=== PATIENT | female | born 1955 | race American Indian/Alaskan Native ===

== ENCOUNTER 2017-12-22 17:47 | Emergency (ER) | payer OTHER ==
[2017-12-22] MEDS ORDERED: ASPIRIN PO ONE (18:48)
[2017-12-22 19:10] LABS: Basophils # (Auto) 0.2 K/mm3 (0.0-0.1); Basophils % (Auto) 0.9 % (0.0-1.8); Eosinophils # (Auto) 0.1 K/mm3 (0.0-0.4); Eosinophils % (Auto) 0.5 % (0.0-4.3); Hematocrit 42.1 % (30.3-42.9); Hemoglobin 13.8 gm/dl (10.1-14.3); Lymphocytes % (Auto) 11.2 % (13.4-35.0); Mean Corpuscular HGB Conc 33 % (30-34); Mean Corpuscular Hemoglobin 32 pg (28-32); Mean Corpuscular Volume 98 fl (79-97); Monocytes # (Auto) 0.8 K/mm3 (0.0-0.8); Monocytes % (Auto) 4.5 % (0.0-7.3); Platelet Count 301 K/mm3 (140-440); Red Blood Count 4.28 M/mm3 (3.65-5.03); Red Cell Distribution Width 14.8 % (13.2-15.2)
[2017-12-22 19:26] LABS: Alanine Aminotransferase 18 units/L (7-56); Albumin 4.2 g/dL (3.9-5); BUN/Creatinine Ratio 16; Blood Urea Nitrogen 11 mg/dL (7-17); Calcium 9.4 mg/dL (8.4-10.2); Hemolysis Index 3
--- NOTE | 2017-12-22 23:09 | XRay Report ---
FINAL REPORT PROCEDURE: XR CHEST ROUTINE 2V TECHNIQUE: PA and lateral chest radiographs were obtained. CPT 32525 HISTORY: abdominal and cp COMPARISON: No prior studies are available for comparison. FINDINGS: Heart: Normal. Mediastinum/Vessels: Normal. Lungs/Pleural space: Normal. Bony thorax: No acute osseous abnormality. Other: IMPRESSION: Normal examination.
--- NOTE | 2017-12-23 10:02 | Emergency Department Report ---
HPI - General Chief Complaint: Abdominal Pain Time Seen by Provider: 12/23/17 09:45 - HPI HPI: Room 6 The patient is a 62-year-old female presenting with a chief complaint back pain and abdominal pain. The patient states 2 days ago she will gas pain in her upper back which then moved down to her lower back began to radiate around to her abdomen. Patient states the pain lasts approximately 12 hours and then resolved. The patient states yesterday when she waking the pain returned and lasted pretty much all day until today. The patient does admit to nausea and vomiting but denies diarrhea. Patient denies chest pain or shortness of breath. Patient currently denies pain Location: Low back, abdomen Duration: [See above] Quality: "Pain" Severity: Currently 0/10 Modifying factors: [see above] Context: [see above] Mode of transportation: [not driving] ED Past Medical Hx - Past Medical History Hx Hypertension: Yes Hx Heart Attack/AMI: Yes (2001) - Surgical History Past Surgical History?: No Additional Surgical History: cardia stents - Family History Family history: no significant - Social History Smoking Status: Never Smoker Substance Use Type: None (denies illicit drug use) - Medications Home Medications: Home Medications Medication Instructions Recorded Confirmed Last Taken Type Acetaminophen/Codeine 1 tab PO Q6H PRN #10 tab 09/28/14 Unknown Rx [Acetaminophen-Codeine #3 TAB] Atorvastatin [Lipitor] 80 mg PO QHS 09/28/14 09/28/14 Unknown History Azithromycin [Zithromax Z-KEVON] 250 mg PO DAILY #6 tablet 09/28/14 Unknown Rx Metoprolol [Lopressor TAB] 100 mg PO DAILY 09/28/14 09/28/14 Unknown History Ramipril 10 mg PO QDAY 09/28/14 09/28/14 Unknown History Telmisartan/Hydrochlorothiazid 1 each PO QDAY 09/28/14 09/28/14 Unknown History [Micardis Hct 80-12.5 mg] amLODIPine [Norvasc] 10 mg PO DAILY 09/28/14 09/28/14 Unknown History guaiFENesin/DEXTROMETHORPHAN 1 each PO BID #20 tbmp.12hr 09/28/14 Unknown Rx [Mucinex Dm ER 1,200-60 mg Tab] Ciprofloxacin HCl [Ciprofloxacin 500 mg PO BID #14 tablet 12/23/17 Unknown Rx TAB] HYDROcodone/APAP 5-325 [[place] 1 - 2 each PO Q6HR PRN #10 tablet 12/23/17 Unknown Rx 5/325] ED Review of Systems ROS: Stated complaint: GAS PAIN/BACK PAIN Other details as noted in HPI Constitutional: denies: fever Respiratory: denies: shortness of breath Cardiovascular: denies: chest pain Gastrointestinal: abdominal pain, nausea, vomiting. denies: diarrhea Musculoskeletal: back pain Physical Exam - Physical Exam Vital Signs: Vital Signs 12/22/17 18:43 Temperature 97.6 F Pulse Rate 55 L Respiratory 16 Rate Blood Pressure 173/60 O2 Sat by Pulse 99 Oximetry Physical Exam: GENERAL: The patient is well-developed well-nourished female lying on stretcher not appearing to be in acute distress. [] HEENT: Normocephalic. Atraumatic. Extraocular motions are intact. Patient has moist mucous membranes. NECK: Supple. Trachea midline CHEST/LUNGS: Clear to auscultation. There is no respiratory distress noted. HEART/CARDIOVASCULAR: Regular. There is no tachycardia. There is no gallop rub or murmur. ABDOMEN: Abdomen is soft, nontender. Patient has normal bowel sounds. There is no abdominal distention. SKIN: There is no rash. There is no edema. There is no diaphoresis. NEURO: The patient is awake, alert, and oriented. The patient is cooperative. The patient has normal speech MUSCULOSKELETAL: There is no CVA tenderness. There is no evidence of acute injury. ED Course Vital Signs 12/22/17 18:43 Temperature 97.6 F Pulse Rate 55 L Respiratory 16 Rate Blood Pressure 173/60 O2 Sat by Pulse 99 Oximetry ED Medical Decision Making - Lab Data Result diagrams: 12/22/17 18:51 12/22/17 18:51 Laboratory Tests 12/22/17 12/22/17 12/22/17 11:07 18:51 18:51 WBC 17.7 H RBC 4.28 Hgb 13.8 Hct 42.1 MCV 98 H MCH 32 MCHC 33 RDW 14.8 Plt Count 301 Lymph % (Auto) 11.2 L [place] % (Auto) 4.5 Eos % (Auto) 0.5 Baso % (Auto) 0.9 Lymph # 2.0 [place] # 0.8 Eos # 0.1 Baso # 0.2 H Seg Neutrophils % 82.9 H Seg Neutrophils # 14.7 H Sodium 142 Potassium 3.9 Chloride 99.8 Carbon Dioxide 31 H Anion Gap 15 BUN 11 Creatinine 0.7 Estimated GFR > 60 BUN/Creatinine Ratio 16 Glucose 112 H Calcium 9.4 Total Bilirubin 0.20 AST 19 ALT 18 Alkaline Phosphatase 63 Troponin T < 0.010 Total Protein 7.3 Albumin 4.2 Albumin/Globulin Ratio 1.4 Lipase Urine Color Straw Urine Turbidity Clear Urine pH 7.0 Ur Specific [place] 1.004 Urine Protein <15 mg/dl Urine Glucose (UA) Neg Urine Ketones Neg Urine Blood Neg Urine Nitrite Neg Ur Reducing Substances Not Reportable Urine Bilirubin Neg Urine Ictotest Not Reportable Urine Urobilinogen < 2.0 Ur Leukocyte Esterase Neg Urine WBC (Auto) 2.0 Urine RBC (Auto) 1.0 U Epithel Cells (Auto) 2.0 Urine Bacteria (Auto) 3+ Urine Mucus Few 12/22/17 12/22/17 12/23/17 22:42 22:42 01:53 WBC RBC Hgb Hct MCV MCH MCHC RDW Plt Count Lymph % (Auto) [place] % (Auto) Eos % (Auto) Baso % (Auto) Lymph # [place] # Eos # Baso # Seg Neutrophils % Seg Neutrophils # Sodium Potassium Chloride Carbon Dioxide Anion Gap BUN Creatinine Estimated GFR BUN/Creatinine Ratio Glucose Calcium Total Bilirubin AST ALT Alkaline Phosphatase Troponin T < 0.010 < 0.010 Total Protein Albumin Albumin/Globulin Ratio Lipase 24 Urine Color Urine Turbidity Urine pH Ur Specific [place] Urine Protein Urine Glucose (UA) Urine Ketones Urine Blood Urine Nitrite Ur Reducing Substances Urine Bilirubin Urine Ictotest Urine Urobilinogen Ur Leukocyte Esterase Urine WBC (Auto) Urine RBC (Auto) U Epithel Cells (Auto) Urine Bacteria (Auto) Urine Mucus - EKG Data -: EKG Interpreted by Co EKG shows normal: sinus rhythm Rate: normal - EKG Data When compared to previous EKG there are: previous EKG unavailable Interpretation: other (no ischemic changes seen) - Radiology Data Radiology results: report reviewed (CT abdomen and pelvis), image reviewed (CT abdomen and pelvis) CT ABDOMEN PELVIS WITH AND WITHOUT CONTRAST: HISTORY: Bilateral flank pain, nausea and vomiting. COMPARISON: none. TECHNIQUE: Helical CT in 1.25mm intervals before and after IV contrast. Sagittal and coronal reconstructions. FINDINGS: Lung bases: Normal. Liver: Normal. Biliary system: Normal. Pancreas: Normal. Spleen: Normal. Kidneys/ureters/bladder: Normal. Adrenal glands: Normal. Aorta: Normal. Intestines: Normal. Appendix: Normal. Pelvic viscera: Hysterectomy. Ascites: Trace pelvic ascites appears physiologic. Adenopathy: None. Musculoskeletal: Normal. IMPRESSION: No acute process is identified in the abdomen or pelvis.. Transcribed By: TTR Dictated By: DALILA ROSARIO JR, MD Electronically Authenticated By: DALILA ROSARIO JR, MD Signed Date/Time: 12/23/17 1343 DD/ 134 TD/TT: 12/23/17 1343 - Medical Decision Making Patient's CT abdomen and pelvis did not reveal any acute processes. However given patient's leukocytosis and bacteriuria in addition to lack of other significant findings I will treat the patient for UTI. - Differential Diagnosis renal colic, pyelonephritis, Critical care attestation.: If time is entered above; I have spent that time in minutes in the direct care of this critically ill patient, excluding procedure time. ED Disposition Clinical Impression: Back pain, Abdominal pain, Leukocytosis, Bacteriuria Disposition: - TO HOME OR SELFCARE Is pt being admited?: No Does the pt Need Aspirin: No Condition: Stable Instructions: Abdominal Pain (ED) Additional Instructions: Return to the emergency department immediately should you develop worsening symptoms, fever, inability to tolerate food or liquid or any other concerns. Prescriptions: Ciprofloxacin HCl [Ciprofloxacin TAB] 500 mg PO BID #14 tablet HYDROcodone/APAP 5-325 [[place] 5/325] 1 - 2 each PO Q6HR PRN #10 tablet PRN Reason: Pain Referrals: PRIMARY CAREMD [Primary Care Provider] - 3-5 Days Time of Disposition: 13:57
[2017-12-23 11:35] LABS: Bacteria,Urine 3+ /HPF (Negative); Mucus,Urine FEW /HPF
[2017-12-23 11:36] LABS: Bilirubin,Urine NEG (Negative); Blood,Urine NEG (Negative); Color,Urine Straw (Yellow); Protein,Urine <15 mg/dL mg/dL (Negative); Urobilinogen,Urine < 2.0 mg/dL (<2.0)
--- NOTE | 2017-12-23 13:50 | Cat Scan Report ---
CT ABDOMEN PELVIS WITH AND WITHOUT CONTRAST: HISTORY: Bilateral flank pain, nausea and vomiting. COMPARISON: none. TECHNIQUE: Helical CT in 1.25mm intervals before and after IV contrast. Sagittal and coronal reconstructions. FINDINGS: Lung bases: Normal. Liver: Normal. Biliary system: Normal. Pancreas: Normal. Spleen: Normal. Kidneys/ureters/bladder: Normal. Adrenal glands: Normal. Aorta: Normal. Intestines: Normal. Appendix: Normal. Pelvic viscera: Hysterectomy. Ascites: Trace pelvic ascites appears physiologic. Adenopathy: None. Musculoskeletal: Normal. IMPRESSION: No acute process is identified in the abdomen or pelvis..
[2017-12-23 14:40] VITALS: BP 171/79
== END 2017-12-23 14:40 | disposition home or self-care (01) ==
LOC: ED 17:47
DX: M54.5 Low back pain (principal); R10.9 Unspecified abdominal pain; D72.829 Elevated white blood cell count, unspecified; R82.71 Bacteriuria; R11.2 Nausea with vomiting, unspecified; I10 Essential (primary) hypertension; I25.2 Old myocardial infarction; Z95.818 Presence of other cardiac implants and grafts
CPT/HCPCS: 36415; 71046; 74178; 80048; 80053; 81001; 83690; 84484; 85025; 93005; 93010; 99284; Q9967